=== PATIENT | male | born 1960 | race Caucasian/White ===

== ENCOUNTER 2016-06-11 21:13 | Emergency (ER) | payer BC, MEDICAID ==
[2016-06-11 21:48] VITALS: BP 122/69
--- NOTE | 2016-06-11 22:01 | UC ---
Throat Pain/Nasal Gerardo HPI - HPI Summary HPI Summary: complaint of cough and nasal congestion for over a week productive cough with green sputum slight sinus pressure mild sore throat , frequent headaches sometimes feels that he is wheezing at night denies fever and chills took some benadryl yesterday without relief - History of Current Complaint Chief Complaint: UCGeneralIllness Stated Complaint: COUGH,CONGESTION Time Seen by Provider: 06/11/16 21:53 Hx Obtained From: Patient - Allergies/Home Medications Allergies/Adverse Reactions: Allergies Allergy/AdvReac Type Severity Reaction Status Date / Time environmental allergy Allergy Congestion Uncoded 06/11/16 21:47 PMH/Surg Hx/FS Hx/Imm Hx Previously Healthy: Yes Endocrine History Of: Denies: Diabetes, Thyroid Disease, Hyperthyroidism, Hypothyroidism, Dyslipidemia Cardiovascular History Of: Denies: Cardiac Disorders, Hypertension, Pacemaker/ICD, Myocardial Infarction , Congestive Heart Failure, Atrial Fibrillation, Deep Vein Thrombosis, Bleeding Disorders Respiratory History Of: Reports: Asthma - He takes no medications for this. GI/ History Of: Denies: Gastroesophageal Reflux, Ulcer, Gastrointestinal Bleed, Gall Bladder Disease, Kidney Stones, Diverticulitis, Renal Disease, Urosepsis Neurological History Of: Denies: TIA, CVA, Dementia, Seizures, Migraine Psychological History Of: Denies: Anxiety, Depression, Bipolar Disorder, Schizophrenia, Post Traumatic Stress Disorder Cancer History Of: Denies: Lung Cancer, Colorectal Cancer, Breast Cancer, Prostate Cancer, Cervical Cancer Other History Of: Negative For: HIV, Hepatitis B, Hepatitis C, Anticoagulant Therapy - Surgical History Surgical History: Yes Surgery Procedure, Year, and Place: sebaceous cyst on back 02/2013 - Family History Known Family History: Negative: Cardiac Disease, Hypertension, Diabetes - Social History Occupation: Employed Full-time Lives: With Family Alcohol Use: Occasionally Substance Use Type: Excessive Caffeine Smoking Status (MU): Never Smoked Tobacco - Immunization History Most Recent Influenza Vaccination: no Review of Systems Constitutional: Negative Skin: Negative Eyes: Negative ENT: Negative, Nasal Discharge Respiratory: Cough Cardiovascular: Negative Gastrointestinal: Negative Genitourinary: Negative Motor: Negative Neurovascular: Negative Musculoskeletal: Negative Neurological: Negative Psychological: Negative All Other Systems Reviewed And Are Negative: Yes Physical Exam Triage Information Reviewed: Yes Appearance: No Pain Distress, Well-Nourished Vital Signs: Initial Vital Signs Temp 98 F 06/11/16 21:42 Pulse 60 06/11/16 21:42 Resp 16 06/11/16 21:42 BP 122/69 06/11/16 21:42 Pulse Ox 99 06/11/16 21:42 Vital Signs Reviewed: Yes Eyes: Positive: Conjunctiva Clear ENT: Positive: Pharyngeal erythema, Nasal congestion, TMs normal Neck: Positive: No Lymphadenopathy Respiratory: Positive: Normal breath sounds, No respiratory distress, Wheezing - inBLL Cardiovascular: Positive: RRR, No Murmur Abdomen Description: Positive: Nontender, Soft Bowel Sounds: Positive: Present Musculoskeletal: Positive: No Edema Neurological: Positive: Alert Psychological Exam: Normal Skin Exam: Normal Throat Pain/Nasal Course/Dx - Differential Dx/Diagnosis Differential Diagnosis/HQI/PQRI: URI, Other - asthma Provider Diagnoses: asthma exacerbation Discharge - Discharge Plan Condition: Stable Disposition: HOME Prescriptions: Albuterol HFA INHALER* [Ventolin HFA Inhaler*] 2 puff INH Q4H PRN #1 mdi PRN Reason: Wheezing Azithromycin TAB* [Zithromax TAB (Z-KRISTI) 250 mg #6 tabs] 2 tab PO .TODAY, THEN 1 DAILY #1 kristi predniSONE TAB* [Deltasone TAB*] 50 mg PO DAILY #5 tab Patient Education Materials: Asthma (ED) Referrals: Tavo Taylor MD [Primary Care Provider] - Additional Instructions: Please take antibiotic and prednisone as directed Use your albuterol inhaler every 4-6 hours when needed for wheezing, shortness of breath or uncontrolled coughing. Increase fluids and rest Take acetaminophen or ibuprofen for fever or pain Please review your discharge instructions. If your symptoms do not improve please call your primary care provider or return to urgent care.
== END 2016-06-11 22:13 | disposition home or self-care (01) ==
LOC: UCCORT 21:13
DX: J45.901 Unspecified asthma with (acute) exacerbation (principal)
CPT/HCPCS: 99212; G0463

== ENCOUNTER 2019-04-17 19:23 | Emergency (ER) | payer OTHER ==
--- OUTSIDE RECORDS SUMMARY | 2019-04-17 19:30 | XMS REPORT | Continuity of Care Document ---
:1960 External Reference #:[id number] Author Name ELICEO Childs Address [address] [address] [place] [id number] Care Team Providers Name Role Phone Osmel Kendrick MD - Care Team Information Etl Architect [phone] Endocrinology, Diabetes & Metabolism Tavo Taylor MD - Family Care Team Information Etl Architect Medicine [facility] - Sports Care Team Information Etl Architect [phone] Medicine Jocelyne Stanton MD - Gastroenterology Care Team Information Etl Architect Problems Active Problems Provider Date Difficulty breathing Tavo Taylor MD Onset: 05/31/2012 Disorder of shoulder Tavo Taylor MD Onset: 05/31/2012 Wrist joint pain Tavo Taylor MD Onset: 05/31/2012 Dystrophia unguium Tavo Taylor MD Onset: 05/31/2012 Adult health examination Tavo Taylor MD Onset: 05/31/2012 Social History Type Date Description Comments Sex Unknown ETOH Use Currently consumes 5 per week alcohol Recreational Drug Use Denies Drug Use Tobacco Use Reviewed: Patient has never smoked 05/21/14 Smoking Status Reviewed: Patient has never smoked 10/30/18 Exercise Type/Frequency Exercises regularly run,swims and bikes Allergies, Adverse Reactions, Alerts Description No Known Drug Allergies Medications Active Medications SIG Qnty Indications Ordering Provider Date Albuterol Sulfate HFA 2 puffs every 6 1units J45.909 Tavo 02/21/2019 hours MD Brandon 108(90Base) mcg/Act Aerosol Immunizations CPT Code Status Date Vaccine Lot # [id number] Given 05/21/2014 Tdap - Tetanus/Diptheria/Acellular Pertussis Vital Signs Date Vital Result Comment 02/21/2019 4:56pm Heart Rate 70 /min BP Systolic Sitting 120 mmHg BP Diastolic Sitting 70 mmHg Respiratory Rate 16 /min Body Temperature 98.8 F O2 % BldC Oximetry 98 % room air 10/23/2018 3:46pm Weight 223.00 lb BP Systolic 132 mmHg BP Diastolic 86 mmHg Results Test Acquired Facility Test Result H/L Range Note Date Laboratory 02/21/2019 [facility] NEGATIVE Negative test finding Influenza Chlamydia 10/25/2018 [facility] Chlamydia 1:256 titer Abnormal <1:64 Antibody Panel [address] [place] [address] IgG [phone] Chlamydia pneumoniae IgM <1:10 titer <1:10 Chlamydia trachomatis IgG <1:64 titer <1:64 Chlamydia trachomatis IgM <1:10 titer <1:10 Chlamydia psittaci IgG <1:64 titer <1:64 Chlamydia psittaci IgM <1:10 titer <1:10 1 HIV 1&2 p24 10/25/2018 [facility] HIV 4th Nonreactive Nonreactive Screen [address] [place] [address] [phone] Herpes 10/25/2018 [facility] Herpes Simplex Negative Negative Simplex Type 101 PrePlay Virus I IgG AB 1&2 [place] [address] [phone] Herpes Simplex Virus II IgG AB Negative Negative 2 Laboratory test 10/25/2018 [facility] Syphillis Igg Negative Negative finding [address] W/[place] [address] [phone] Hepatitis Acute 10/25/2018 [facility] Hepatitis A AB Negative Negative Panel [address] [place] [address] [phone] Hepatitis B Core AB Igm Nonreactive Nonreactive Hepatitis B Surface Ag Negative Negative Hepatitis C Antibody 10/25/2018 [facility] HCV Index 0.02 s/c [address] [place] [address] [phone] Hepatitis C Antibody Negative Negative 1 ADDITIONAL INFORMATION This test was developed and its performance characteristics determined by [facility] in a manner consistent with CLIA requirements. This test has not been cleared or approved by the U.S. Food and Drug Administration. Test Performed by: [facility] [place] [address] Buttonholer: Edison Nicoel M.D. Ph.D.; CLIA# [id number] 2 Test Performed by: [facility] [place] [address] Buttonholer: Edison Nicole M.D. Ph.D.; CLIA# [id number] Procedures Date Code Description Status 12/18/2013 12647362 Colonoscopy Completed Medical Devices Description No Information Available Encounters Type Date Location Provider Dx Diagnosis Office Visit 10/23/2018 [facility] Tavo M25.562 Pain in left knee 3:30p MD Brandon M25.561 Pain in right knee Z11.3 Encntr screen for infections w sexl mode of transmiss Assessments Date Code Description Provider 02/21/2019 J45.909 Asthma ELICEO Childs 10/23/2018 M25.562 Pain in left knee Tavo Taylor MD 10/23/2018 M25.561 Pain in right knee Tavo Taylor MD 10/23/2018 Z11.3 Encounter for screening for infections with Tavo Taylor MD a predominantly sexual mode of transmission Plan of Treatment 02/21/2019 - ELICEO ChildsJ45.909 AsthmaNew Medication:Albuterol Sulfate HFA 108(90 Base) mcg/Act - 2 puffs every 6 hoursComments:FOLLOW UP WITH PRIMARY CARE IN 5-7 DAYS OR SOONER IF WORSE. Functional Status Description No Information Available Mental Status Description No Information Available Referrals Refer to Reason for Referral Status Appt Date [facility] Received Complete 10/24/2018 [address] [place] [address] [phone]
[2019-04-17 20:12] VITALS: BP 123/77
--- NOTE | 2019-04-17 20:31 | UC ---
Respiratory Complaint HPI - HPI Summary HPI Summary: Pt presents with c/o of cough, wheezing X 3 weeks. Pt has hx of allergies and asthma and has rescue INH that he has not been using. - History of Current Complaint Chief Complaint: UCRespiratory Stated Complaint: COUGH Time Seen by Provider: 04/17/19 20:23 Hx Obtained From: Patient Onset/Duration: Sudden Onset, Lasting Weeks, Still Present Timing: Constant Severity Initially: Mild Severity Currently: Mild Pain Intensity: 0 Character: Cough: Nonproductive Associated Signs And Symptoms: Positive: Wheezing Related History: Seasonal Allergies - Risk Factors Pulmonary Embolism Risk Factors: Negative Cardiac Risk Factors: Negative Pseudomonas Risk Factors: Negative Tuberculosis Risk Factors: Negative - Allergies/Home Medications Allergies/Adverse Reactions: Allergies Allergy/AdvReac Type Severity Reaction Status Date / Time environmental allergy Allergy Congestion Uncoded 04/17/19 20:12 Home Medications: Home Medications Albuterol 2.5MG/3ML (0.083%)* [Ventolin 2.5 MG/3 ML NEB.ROCKY*] 2.5 mg INH Q6H PRN #1 neb.rocky 04/17/19 [Rx] predniSONE 10 mg TAB [Deltasone 10 MG TAB*] 30 mg PO DAILY #18 tab 04/17/19 [Rx] PMH/Surg Hx/FS Hx/Imm Hx Previously Healthy: Yes Respiratory History: Asthma Other History Of: Negative For: HIV, Hepatitis B, Hepatitis C, Anticoagulant Therapy - Surgical History Surgical History: Yes Surgery Procedure, Year, and Place: sebaceous cyst on back 02/2013 - Family History Known Family History: Negative: Cardiac Disease, Hypertension, Diabetes - Social History Occupation: Employed Full-time Lives: With Family Alcohol Use: Rare Substance Use Type: None Smoking Status (MU): Never Smoked Tobacco Have You Smoked in the Last Year: No - Immunization History Most Recent Influenza Vaccination: no Vaccination Up to Date: No Review of Systems All Other Systems Reviewed And Are Negative: Yes Constitutional: Positive: Negative Skin: Positive: Negative Eyes: Positive: Negative ENT: Positive: Negative Respiratory: Positive: Cough, Other - wheezing Cardiovascular: Positive: Negative Gastrointestinal: Positive: Negative Genitourinary: Positive: Negative Motor: Positive: Negative Neurovascular: Positive: Negative Musculoskeletal: Positive: Negative Neurological/Mental Status: Positive: Negative Psychological: Positive: Negative Is Patient Immunocompromised?: No Physical Exam Triage Information Reviewed: Yes Appearance: Well-Appearing Vital Signs: Initial Vital Signs Temp 98.7 F 04/17/19 20:06 Pulse 65 04/17/19 20:06 Resp 18 04/17/19 20:06 BP 123/77 04/17/19 20:06 Pulse Ox 97 04/17/19 20:06 Vital Signs Reviewed: Yes Eye Exam: Normal Eyes: Positive: Conjunctiva Inflamed Dental Exam: Normal Neck exam: Normal Respiratory Exam: Normal Respiratory: Positive: Normal breath sounds Cardiovascular Exam: Normal Musculoskeletal Exam: Normal Neurological Exam: Normal Psychological Exam: Normal Skin Exam: Normal Respiratory Course/Dx - Differential Dx/Diagnosis Differential Diagnosis/HQI/PQRI: Asthma, Bronchitis, Exacerbation Of COPD Provider Diagnosis: Cough in adult Discharge ED - Sign-Out/Discharge Documenting (check all that apply): Patient Departure All imaging exams completed and their final reports reviewed: No Studies - Discharge Plan Condition: Stable Disposition: HOME Prescriptions: Albuterol 2.5MG/3ML (0.083%)* [Ventolin 2.5 MG/3 ML NEB.ROCKY*] 2.5 mg INH Q6H PRN #1 neb.rocky PRN Reason: Sob/Wheezing predniSONE 10 mg TAB [Deltasone 10 MG TAB*] 30 mg PO DAILY #18 tab Patient Education Materials: Acute Cough (ED), Wheezing (ED) Referrals: Tavo Taylor MD [Primary Care Provider] - - Billing Disposition and Condition Condition: STABLE Disposition: Home
== END 2019-04-17 20:42 | disposition home or self-care (01) ==
LOC: UCCORT 19:23
DX: R05 Cough (principal); J45.909 Unspecified asthma, uncomplicated; Z91.09 Other allergy status, other than to drugs and biological substances; Z79.52 Long term (current) use of systemic steroids
CPT/HCPCS: 99212; G0463